=== PATIENT | male | born 1985 | race Caucasian/White ===

== ENCOUNTER 2018-01-03 12:32 | Emergency (ER) | payer OTHER ==
[~2018-01-03] VITALS: Ht 185.4 cm; Wt 70.9 kg
[~2018-01-03 12:32] MED LIST: HYDR-569 PO; IBUP-1985 PO
[2018-01-03 12:36] VITALS: BP 132/74
== END 2018-01-03 13:09 | disposition home or self-care (01) ==
LOC: ER 12:32
DX: M54.2 Cervicalgia (principal); J00 Acute nasopharyngitis [common cold]; Z79.899 Other long term (current) drug therapy; V43.52XA Car driver injured in collision with other type car in traffic accident, initial encounter; Y93.89 Activity, other specified; Y92.410 Unspecified street and highway as the place of occurrence of the external cause; Y99.8 Other external cause status
CPT/HCPCS: 99281

== ENCOUNTER 2020-01-08 07:17 | Emergency (ER) | payer MEDICAID, OTHER ==
[~2020-01-08] VITALS: Ht 190.5 cm; Wt 100.0 kg
[~2020-01-08 07:17] MED LIST changes: +HYDR-4383 PO; -HYDR-569 PO
[2020-01-08] MEDS ORDERED: ondansetron/PF 4mg/2ml inj IV ONE (07:25)
[2020-01-08] MEDS ORDERED: morphine 4 MG/ML inj SYRINge IV ONE (07:25)
[2020-01-08] MEDS ORDERED: normal saline 1000ml 1,000 ML IV ONE (07:25)
[2020-01-08 07:44] LABS: BASOPHILS % (AUTO) 0.2 % (0-1); EOSINOPHILS # (AUTO) 0.1 X10'3 (0-0.9); EOSINOPHILS % (AUTO) 0.7 % (0-6); HEMATOCRIT 43.2 % (42.0-52.0); HEMOGLOBIN 14.7 g/dl (14.0-17.9); LYMPHOCYTES # (AUTO) 2.1 X10'3 (1.1-4.8); LYMPHOCYTES % (AUTO) 16.1 % (21-51); MEAN CORPUSCULAR HEMOGLOBIN 30.2 PG (27.0-31.0); MEAN CORPUSCULAR VOLUME 88.8 FL (78-98); MEAN PLATELET VOLUME 7.6 FL (7.4-10.4); MONOCYTES # (AUTO) 0.5 X10'3 (0-0.9); MONOCYTES % (AUTO) 4.1 % (2-12); NEUTROPHILS # (AUTO) 10.2 X10'3 (1.8-7.7); NEUTROPHILS % (AUTO) 78.9 % (42-75); PLATELET COUNT 350 X10'3 (140-440); RED BLOOD COUNT 4.87 X10'6 (4.70-6.10); RED CELL DISTRIBUTION WIDTH 13.1 % (11.5-14.5)
[2020-01-08 07:49] LABS: ALANINE AMINOTRANSFERASE 27 U/L (12-78); ALBUMIN 3.9 G/DL (3.4-5.0); ALBUMIN/GLOBULIN RATIO 1.2 (1.1-1.5); ALKALINE PHOSPHATASE 61 IU/L (46-116); ANION GAP 7 (8-16); ASPARTATE AMINO TRANSFERASE 19 U/L (10-37); BILIRUBIN,TOTAL 0.5 MG/DL (0.1-1.0); BLOOD UREA NITROGEN 19 MG/DL (7-18); BUN/CREATININE RATIO 16.5 (5.4-32.0); CALCIUM 8.9 MG/DL (8.5-10.1); CHLORIDE 106 MMOL/L (99-107); CREATININE 1.15 MG/DL (0.60-1.10); GLUCOSE 129 MG/DL (70-104); LIPASE 117 U/L (73-393); POTASSIUM 4.5 MMOL/L (3.5-5.1); SODIUM 138 MMOL/L (135-145); TOTAL CARBON DIOXIDE 24.9 MMOL/L (24-32); TOTAL PROTEIN 7.2 G/DL (6.4-8.2); eGFR 73 ML/MIN
[2020-01-08 08:28] LABS: CLARITY,URINE CLEAR (Clear); COLOR,URINE YELLOW (Yellow); GLUCOSE, URINE NEGATIVE (Neg); KETONES,URINE NEGATIVE (Neg); LEUKOCYTE ESTERASE ,URINE NEGATIVE (Neg); NITRITES, URINE NEGATIVE (Neg); OCCULT BLOOD,URINE LARGE (Neg); PH,URINE 5.5 (4.8-8.0); PROTEIN,URINE 30 mg/dl (Neg); UROBILINOGEN,URINE 0.2 E.U/dL (0.2-1.0)
[2020-01-08 08:29] LABS: UA COLLECTION TYPE VOIDED
[2020-01-08 08:39] LABS: MUCUS STRANDS MODERATE /LPF (Neg); SQUAMOUS EPITHELIAL CELL,UR MODERATE /LPF (FEW)
[2020-01-08 08:42] LABS: RBC,URINE 20-50 /HPF (0-2)
[2020-01-08 08:46] LABS: BACTERIA,URINE FEW /HPF (Neg); TRANSITIONAL EPI CELLS,URINE FEW /HPF
[2020-01-08 08:47] LABS: WBC,URINE 0-4 /HPF (0-4)
[2020-01-08] MEDS ORDERED: HYDR-4353 PO (09:28)
[2020-01-08] MEDS ORDERED: ONDA4TAB6 PO (09:28)
[2020-01-08 10:04] VITALS: BP 134/83
== END 2020-01-08 10:06 | disposition home or self-care (01) ==
LOC: ER 07:18
DX: N23 Unspecified renal colic (principal); R11.2 Nausea with vomiting, unspecified; Z87.442 Personal history of urinary calculi; Z72.89 Other problems related to lifestyle; Z79.899 Other long term (current) drug therapy
CPT/HCPCS: 36415; 80053; 81001; 83690; 85025; 96361; 96374; 96375; 99284; J2270; J2405; J7030